=== PATIENT | female | born 1965 | race Two or more races ===

== ENCOUNTER 2025-03-10 13:58 | Emergency (ER) | payer OTHER ==
[~2025-03-10] VITALS: Ht 157.5 cm; Wt 70.9 kg
--- NOTE | 2025-03-10 14:49 | ED.PDOC ---
History of Present Illness HPI Comments 59 year old female presents to the ED with a chief complaint of headache onset last night (03/09/25). PMHx cervical arthritis, causes patient to experience migraines. Patient began experiencing headache, shortness of breath, bilateral ear pain, nausea, vomiting since last night, symptoms worsen this morning, decided to come to ED. Patient takes Ibuprofen 800 mg for pain, ran out of medication, recently moved to the area, has no PCP. Denies chest pain, diarrhea, abdominal pain, sore throat, cough, congestion, fever, chills. No other symptoms or modifying factors present at this time. 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 History Family History Family History: Reviewed,noncontributory to illness, No family hx of Cancer, No family hx of DM, No family hx of Heart abram, No family hx of HTN, No family hx ofKidney abram, No family hx of Liver abram, No family hx of Lung abram, No family hx of Stroke Social History Smoker: Non-Smoker Alcohol: Denies ETOH Use Drugs: Denies Drug Use Lives In: Home Constitutional: denies: chills, diaphoresis, fatigue, fever, malaise, sweats, weakness, others EENTM: reports: ear pain; denies: blurred vision, double vision, ear bleeding, ear discharge, ear drainage, ear ringing, eye pain, eye redness, hearing loss, mouth pain, mouth swelling, nasal discharge, nose bleeding, nose congestion, nose pain, photophobia, tearing, throat pain, throat swelling, voice changes, others Respiratory: reports: shortness of breath; denies: cough, hemoptysis, orthopnea, SOB at rest, SOB with excertion, stridor, wheezing, others Cardiovascular: denies: chest pain, dizzy spells, diaphoresis, Dyspnea on exertion, edema, irregular heart beat, left arm pain, lightheadedness, palpitations, PND, syncope, others Gastrointestinal: reports: nausea, vomiting; denies: abdomen distended, abdominal pain, blood streaked bowels, constipated, diarrhea, dysphagia, difficulty swallowing, hematemesis, melena, poor appetite, poor fluid intake, rectal bleeding, rectal pain, others Genitourinary: denies: abnormal vagina bleeding, burning, dyspareunia, dysuria, flank pain, frequency, hematuria, incontinence, pain, , vagina discharge, urgency, others Neurological: reports: headache; denies: dizziness, fainting, left sided numbness, left sided weakness, numbness, paresthesia, pre-existing deficit, right sided numbness, right sided weakness, seizure, speech problems, tingling, tremors, weakness, others Musculoskeletal: denies: back pain, gout, joint pain, joint swelling, muscle pain, muscle stiffness, neck pain, others Integumetry: denies: bruises, change in color, change in hair/nails, dryness, laceration, lesions, lumps, rash, wounds, others Allergic/Immunocompromised: denies: Difficulty Healing, Frequent Infections, Hives, Itching, others Hematologic/Lymphatic: denies: anemia, blood clots, easy bleeding, easy bruising, swollen glands, others Endocrine: denies: excessive hunger, excessive sweating, excessive thirst, excessive urination, flushing, intolerance to cold, intolerance to heat, unexplained weight gain, unexplained weight loss, others Psychiatric: denies: anxiety, bipolar disorder, depression, hopeless, panic disorder, schizophrenia, sleepless, suicidal, others All Other Systems: Reviewed and Negative Physical Exam General Appearance: Moderate Distress, Normal HEENT: Normal ENT Inspection, Pharynx Normal, TMs Normal Neck: Full Range of Motion, Non-Tender, Normal, Normal Inspection Respiratory: Chest Non-Tender, Lungs Clear, No Accessory Muscle Use, No Respiratory Distress, Normal Breath Sounds Cardiovascular: No Edema, No JVD, No Murmur, No Gallop, Normal Peripheral Pulses, Regular Rate/Rhythm Breast Exam: Deferred Gastrointestinal: No Organomegaly, Non Tender, No Pulsatile Mass, Normal Bowel Sounds, Soft Genitalia: Deferred Pelvic: Deferred Rectal: Deferred Extremities: No calf tenderness, Normal capillary refill, Normal inspection, Normal range of motion, Non-tender, No pedal edema Musculoskeletal : Apperance: Normal Neurologic: Alert, order entry specialist II-XII nml as Tested, No Motor Deficits, Normal Affect, Normal Mood, No Sensory Deficits Cerebellar Function: Normal Reflexes: Normal Skin: Dry, Normal Color, Warm Peripheral Pulses: 3+ Radial (R), 3+ Radial (L) Lymphatic: No Adenopathy Was a procedure done? Was a procedure done?: No Differential Dx Considerations may include: Migraine Urinary tract infection X-Ray, Labs, Meds, VS Vital Signs Date Time Temp Pulse Resp B/P (MAP) Pulse Ox O2 Delivery O2 Flow Rate FiO2 03/10/25 14:24 97.9 108 18 134/108 (117) 92 97.9 03/10/25 14:24 Room Air 0 Patient alert. Complaining of migraine. History of migraine. Vitals stable. Answering questions. No head trauma. No new symptom. Blood pressure slightly elevated. Has good muscle strength. No sign of any neurological. Was given Toradol. Was given [place]. Was given prescription of Motrin. Explained to the patient. Was told to follow up with her primary care physician. Was told to come back if there is any problem. Time of 1ST Reevaluation: 15:10 Reevaluation 1ST: Improved Patient Education/Counseling: Diagnosis, Treatment, Prognosis Family Education/Counseling: No Family Present Departure 1 Departure Time of Disposition: 15:21 Impression: Primary Impression: Migraine Qualified Codes: G43.909 - Migraine, unspecified, not intractable, without status migrainosus Disposition: 01 HOME / SELF CARE / HOMELESS Condition: Good e-Prescriptions Ibuprofen Micronized (MOTRIN TABLET) 600 Mg Tb 600 MG PO TID PRN for 5 Days, #15 TAB *Black box warning-NSAIDS can increase risk of [place] & hypertension, GI irritation, ulceration, bleed, perferation. Do not use post cardiac surgery. Use short duration/lowest effective dose. Prov: HILLARY PARKER MD 03/10/25 Discharged With: Self Critical Care Note Critical Care Time?: No Stability Stability form required: No I personally scribed for HILLARY PARKER MD ([email or web address]) on 03/10/25 at 14:49. Electronically submitted by Blanca Leonard ([email or web address]). HILLARY PARKER MD March 10, 2025 14:49
[2025-03-10] MEDS ORDERED: IBU600T PO (15:22)
[2025-03-10] MEDS: KETOROLAC TROMETH 60MG/2ML VIAL IM ONE (18:08)
[2025-03-10] MEDS: HYDROcodone-ACET 10/325MG TAB PO ONE (18:09)
[2025-03-10 18:19] VITALS: BP 146/86; PULSE 84; RESP 16; TEMP 98.6; O2SAT 100
== END 2025-03-10 18:48 | disposition home or self-care (01) ==
LOC: ER 14:03
DX: G43.909 Migraine, unspecified, not intractable, without status migrainosus (principal); M19.90 Unspecified osteoarthritis, unspecified site; H92.03 Otalgia, bilateral
CPT/HCPCS: 96372; 99283; J1885

== ENCOUNTER 2025-03-13 11:05 | Emergency (ER) | payer OTHER ==
[~2025-03-13] VITALS: Ht 154.9 cm; Wt 72.5 kg
[~2025-03-13 11:05] MED LIST: IBU600T PO
[2025-03-13 11:57] VITALS: BP 146/90; PULSE 107; RESP 16; TEMP 98.4; O2SAT 96
[2025-03-13] MEDS ORDERED: METH-1181 PO (12:25)
[2025-03-13] MEDS ORDERED: AUG875T PO (12:25)
[2025-03-13] MEDS ORDERED: NAPR-957 PO (12:25)
--- NOTE | 2025-03-13 12:25 | ED.PDOC ---
Eye-HPI HPI Comments 59-year-old female presents with a chief complaint of bilateral ear pain x 1 week. Patient states that she was here on the 10 of March for the same chief complaint, "but he never checked my ears". Patient was prescribed Ibuprofen 600mg for the pain and diagnosed with a Migraine. Patient also reports that the pain makes her feel nausea and she has been intermittently vomiting due to the pain. Denies fever, SOB, chest pain, abdominal pain, nausea, vomiting, diarrhea, dizziness, vision changes, or numbness/tingling of extremities. No other symptoms or modifying factors reported at this time. Patient is alert and oriented x4 and has a stable gait. Chief Complaint: Earache Time Seen by MD: 11:26 Primary Care Provider: NONE Reviewed Notes: Nurses Notes, Medications, Allergies Allergies: Coded Allergies: NO KNOWN ALLERGIES (Unverified , 03/10/25) Home Meds Active Scripts Naproxen (Naproxen) 375 Mg Tab, 1 TAB PO BIDPC for 7 Days, #14 TAB 0 Refills Prov:LUIAS REDMAN NP 03/13/25 Methocarbamol (Methocarbamol) 500 Mg Tab, 500 MG PO Q8HP PRN for 10 Days, #30 TAB 0 Refills Prov:LUISA REDMAN NP 03/13/25 Amoxicillin & Pot Clavulanate (AUGMENTIN TABLET) 875 Mg Tb, 875 MG PO BID for 7 Days, #14 TAB 0 Refills Prov:LUISA REDMAN NP 03/13/25 Ibuprofen Micronized (MOTRIN TABLET) 600 Mg Tb, 600 MG PO TID PRN for 5 Days, #15 TAB *Black box warning-NSAIDS can increase risk of [place] & hypertension, GI irritation, ulceration, bleed, perferation. Do not use post cardiac surgery. Use short duration/lowest effective dose. 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 History Family History Family History: Reviewed,noncontributory to illness, No family hx of Cancer, No family hx of DM, No family hx of Heart abram, No family hx of HTN, No family hx ofKidney abram, No family hx of Liver abram, No family hx of Lung abram, No family hx of Stroke Social History Smoker: Non-Smoker Alcohol: Denies ETOH Use Drugs: Denies Drug Use Lives In: Home Constitutional: denies: chills, diaphoresis, fatigue, fever, malaise, sweats, weakness, others EENTM: reports: ear pain; denies: blurred vision, double vision, ear bleeding, ear discharge, ear drainage, ear ringing, eye pain, eye redness, hearing loss, mouth pain, mouth swelling, nasal discharge, nose bleeding, nose congestion, nose pain, photophobia, tearing, throat pain, throat swelling, voice changes, others Respiratory: denies: cough, hemoptysis, orthopnea, SOB at rest, shortness of breath, SOB with excertion, stridor, wheezing, others Cardiovascular: denies: chest pain, dizzy spells, diaphoresis, Dyspnea on exertion, edema, irregular heart beat, left arm pain, lightheadedness, palpitations, PND, syncope, others Gastrointestinal: denies: abdomen distended, abdominal pain, blood streaked bowels, constipated, diarrhea, dysphagia, difficulty swallowing, hematemesis, melena, nausea, poor appetite, poor fluid intake, rectal bleeding, rectal pain, vomiting, others Genitourinary: denies: abnormal vagina bleeding, burning, dyspareunia, dysuria, flank pain, frequency, hematuria, incontinence, pain, , vagina dischar ge, urgency, others Neurological: denies: dizziness, fainting, headache, left sided numbness, left sided weakness, numbness, paresthesia, pre-existing deficit, right sided numbness, right sided weakness, seizure, speech problems, tingling, tremors, weakness, others Musculoskeletal: denies: back pain, gout, joint pain, joint swelling, muscle pain, muscle stiffness, neck pain, others Integumetry: denies: bruises, change in color, change in hair/nails, dryness, laceration, lesions, lumps, rash, wounds, others Allergic/Immunocompromised: denies: Difficulty Healing, Frequent Infections, Hives, Itching, others Hematologic/Lymphatic: denies: anemia, blood clots, easy bleeding, easy bruising, swollen glands, others Endocrine: denies: excessive hunger, excessive sweating, excessive thirst, excessive urination, flushing, intolerance to cold, intolerance to heat, unexplained weight gain, unexplained weight loss, others Psychiatric: denies: anxiety, bipolar disorder, depression, hopeless, panic disorder, schizophrenia, sleepless, suicidal, others All Other Systems: Reviewed and Negative Physical Exam General Appearance: No Apparent Distress, Normal HEENT: Normal ENT Inspection, Pharynx Normal, Other (Pre or post auricular lymphadenopathy. Pain to the tragus. Bilateral ear canals are erythematous. Bilateral bulging TMs) Neck: Full Range of Motion, Non-Tender, Normal, Normal Inspection Respiratory: Chest Non-Tender, Lungs Clear, No Accessory Muscle Use, No Respiratory Distress, Normal Breath Sounds Cardiovascular: No Edema, No JVD, No Murmur, No Gallop, Normal Peripheral Pulses, Regular Rate/Rhythm Breast Exam: Deferred Gastrointestinal: No Organomegaly, Non Tender, No Pulsatile Mass, Normal Bowel Sounds, Soft Genitalia: Deferred Pelvic: Deferred Rectal: Deferred Extremities: No calf tenderness, Normal capillary refill, Normal inspection, Normal range of motion, Non-tender, No pedal edema Musculoskeletal : Apperance: Normal Neurologic: Alert, laundry pricing clerk II-XII nml as Tested, No Motor Deficits, Normal Affect, Normal Mood, No Sensory Deficits Cerebellar Function: Normal Reflexes: Normal Skin: Dry, Normal Color, Warm Lymphatic: No Adenopathy Was a procedure done? Was a procedure done?: No EENT DIFF Eye: Other Ear: Abrasion, Cerumen Impaction, Foreign Body, Otitis Externa, Otitis Media X-Ray, Labs, Meds, VS Vital Signs Date Time Temp Pulse Resp B/P (MAP) Pulse Ox O2 Delivery O2 Flow Rate FiO2 03/13/25 11:57 107 16 96 Room Air 03/13/25 11:57 98.4 107 16 146/90 (108) 96 98.4 03/13/25 11:20 98.4 107 16 146/90 (108) 96 98.4 X-Ray, Labs, Meds, VS Comment Differentials considered but not limited to bullous myringitis, eustachian tube dysfunction, cholesteatoma, mastoiditis, meningitis. Exam and history are most consistent with Acute Otitis Media. No diabetes, immunosuppression. Rx: Augmentin Disposition: Discharge home. Strict return precautions discussed. Advise follow up with primary care provider within 24-48 hours. Time of 1ST Reevaluation: 12:39 Reevaluation 1ST: Improved Patient Education/Counseling: Diagnosis, Treatment, Need For Follow Up Family Education/Counseling: No Family Present Departure 1 Departure Time of Disposition: 12:24 Impression: Primary Impression: AOM (acute otitis media) Qualified Codes: H66.001 - Acute suppurative otitis media without spontaneous rupture of ear drum, right ear Additional Impression: Musculoskeletal pain Disposition: HOME / SELF CARE / HOMELESS Condition: Stable e-Prescriptions Naproxen (Naproxen) 375 Mg Tab 1 TAB PO BIDPC for 7 Days, #14 TAB 0 Refills Prov: LUISA REDMAN EXPRESSIVE THERAPIST 03/13/25 Methocarbamol (Methocarbamol) 500 Mg Tab 500 MG PO Q8HP PRN for 10 Days, #30 TAB 0 Refills Prov: LUISA REDMAN NP 03/13/25 Amoxicillin & Pot Clavulanate (AUGMENTIN TABLET) 875 Mg Tb 875 MG PO BID for 7 Days, #14 TAB 0 Refills Prov: LUISA REDMAN EXPRESSIVE THERAPIST 03/13/25 Critical Care Note Critical Care Time?: No Stability Stability form required: No Heart Score Heart Score: Heart Score Response (Comments) Value History N/A 0 EKG N/A 0 Age N/A 0 Risk Factors N/A 0 Troponin N/A 0 Total 0 I personally scribed for LUISA REDMAN EXPRESSIVE THERAPIST ([email or web address]) on 03/13/25 at 12:28. Electronically submitted by Rodney Webster ([email or web address]). I personally scribed for LUISA REDMAN EXPRESSIVE THERAPIST ([email or web address]) on 03/13/25 at 12:31. Electronically submitted by Rodney Webster ([email or web address]). LUISA REDMAN EXPRESSIVE THERAPIST March 13, 2025 12:25
== END 2025-03-13 12:43 | disposition home or self-care (01) ==
LOC: ER 11:05
DX: H66.93 Otitis media, unspecified, bilateral (principal); M79.18 Myalgia, other site; M19.90 Unspecified osteoarthritis, unspecified site; Z79.899 Other long term (current) drug therapy

== ENCOUNTER 2025-03-23 13:41 | Emergency (ER) | payer OTHER ==
[~2025-03-23] VITALS: Ht 154.9 cm; Wt 71.8 kg
[~2025-03-23 13:41] MED LIST changes: +AUG875T PO; +METH-1181 PO; +NAPR-957 PO
--- NOTE | 2025-03-23 14:38 | ED.PDOC ---
History of Present Illness HPI Comments 59-year-old female presents to the ER with prior medical history of arthritis and the chief complaint of earache. Patient reports that she has been here three previous times for the same chief complaint in the past, was given medication for the pain but recently ran out. Patient states on having bilateral earache, sharp pain on the neck, jaw and the temporal region. To physical exam the ears have erythema possibly due from an infection. Denies chills, fever, N/V/D, SOB, CP. No other associated symptoms, modifiers, recent injuries or sick contacts present at this time. Chief Complaint: Earache Time Seen by MD: 14:10 Primary Care Provider: NONE Reviewed Notes: Nurses Notes, Medications, Allergies Allergies: Coded Allergies: NO KNOWN ALLERGIES (Unverified , 03/10/25) Home Meds Active Scripts Naproxen (Naproxen) 375 Mg Tab, 1 TAB PO BIDPC for 7 Days, #14 TAB 0 Refills Prov:LUISA REDMAN NP 03/13/25 Methocarbamol (Methocarbamol) 500 Mg Tab, 500 MG PO Q8HP PRN for 10 Days, #30 TAB 0 Refills Prov:LUISA REDMAN NP 03/13/25 Amoxicillin & Pot Clavulanate (AUGMENTIN TABLET) 875 Mg Tb, 875 MG PO BID for 7 Days, #14 TAB 0 Refills Prov:LUISA REDMAN NP 03/13/25 Ibuprofen Micronized (MOTRIN TABLET) 600 Mg Tb, 600 MG PO TID PRN for 5 Days, #15 TAB *Black box warning-NSAIDS can increase risk of [place] & hypertension, GI irritation, ulceration, bleed, perferation. Do not use post cardiac surgery. Use short duration/lowest effective dose. Prov:HILLARY PARKER MD 03/10/25 Information Source: Patient Mode of Arrival: Ambulatory Severity: Moderate Timing: Came on: Gradually Duration: Since onset Prehospital treatment: None Past Medical History PAST MEDICAL HISTORY: Arthritis Surgical History: Denies all surgeries PUTTY WORKER History: No Pertinent PUTTY WORKER History Family History Family History: Reviewed,noncontributory to illness, Unknown Social History Smoker: Non-Smoker Alcohol: Denies ETOH Use Drugs: Denies Drug Use Lives In: Home Constitutional: denies: chills, diaphoresis, fatigue, fever, malaise, sweats, weakness, others EENTM: reports: ear pain; denies: blurred vision, double vision, ear bleeding, ear discharge, ear drainage, ear ringing, eye pain, eye redness, hearing loss, mouth pain, mouth swelling, nasal discharge, nose bleeding, nose congestion, nose pain, photophobia, tearing, throat pain, throat swelling, voice changes, others Respiratory: denies: cough, hemoptysis, orthopnea, SOB at rest, shortness of breath, SOB with excertion, stridor, wheezing, others Cardiovascular: denies: chest pain, dizzy spells, diaphoresis, Dyspnea on exertion, edema, irregular heart beat, left arm pain, lightheadedness, palpitations, PND, syncope, others Gastrointestinal: denies: abdomen distended, abdominal pain, blood streaked bowels, constipated, diarrhea, dysphagia, difficulty swallowing, hematemesis, melena, nausea, poor appetite, poor fluid intake, rectal bleeding, rectal pain, vomiting, others Genitourinary: denies: abnormal vagina bleeding, burning, dyspareunia, dysuria, flank pain, frequency, hematuria, incontinence, pain, , vagina discharge, urgency, others Neurological: denies: dizziness, fainting, headache, left sided numbness, left sided weakness, numbness, paresthesia, pre-existing deficit, right sided numbness, right sided weakness, seizure, speech problems, tingling, tremors, weakness, others Musculoskeletal: denies: back pain, gout, joint pain, joint swelling, muscle pain, muscle stiffness, neck pain, others Integumetry: denies: bruises, change in color, change in hair/nails, dryness, laceration, lesions, lumps, rash, wounds, others Allergic/Immunocompromised: denies: Difficulty Healing, Frequent Infections, Hives, Itching, others Hematologic/Lymphatic: denies: anemia, blood clots, easy bleeding, easy bruising, swollen glands, others Endocrine: denies: excessive hunger, excessive sweating, excessive thirst, excessive urination, flushing, intolerance to cold, intolerance to heat, unexplained weight gain, unexplained weight loss, others Psychiatric: denies: anxiety, bipolar disorder, depression, hopeless, panic disorder, schizophrenia, sleepless, suicidal, others All Other Systems: Reviewed and Negative Physical Exam General Appearance: Moderate Distress, Normal HEENT: Normal ENT Inspection, Pharynx Normal, TMs Normal Neck: Full Range of Motion, Non-Tender, Normal, Normal Inspection Respiratory: Chest Non-Tender, Lungs Clear, No Accessory Muscle Use, No Respiratory Distress, Normal Breath Sounds Cardiovascular: No Edema, No JVD, No Murmur, No Gallop, Normal Peripheral Pulses, Regular Rate/Rhythm Breast Exam: Deferred Gastrointestinal: No Organomegaly, Non Tender, No Pulsatile Mass, Normal Bowel Sounds, Soft Genitalia: Deferred Pelvic: Deferred Rectal: Deferred Extremities: No calf tenderness, Normal capillary refill, Normal inspection, Normal range of motion, Non-tender, No pedal edema Musculoskeletal : Apperance: Normal Neurologic: Alert, cylinder worker II-XII nml as Tested, No Motor Deficits, Normal Affect, Normal Mood, No Sensory Deficits Cerebellar Function: Normal Reflexes: Normal Skin: Dry, Normal Color, Warm Peripheral Pulses: 3+ Radial (R), 3+ Radial (L) Lymphatic: No Adenopathy Was a procedure done? Was a procedure done?: No Differential Dx Considerations may include: Autonomic disorder X-Ray, Labs, Meds, VS Vital Signs Date Time Temp Pulse Resp B/P (MAP) Pulse Ox O2 Delivery O2 Flow Rate FiO2 03/23/25 13:41 98.7 116 20 153/97 (115) 97 98.7 03/23/25 13:41 98.7 116 20 153/97 (115) 97 98.7 Current Medications Medications (Trade) Dose Ordered Sig/Chucky Route Start Time Stop Time Status Last Admin Ondansetron HCl (Zofran) 4 mg ONCE ONCE IM 03/23/25 14:30 03/23/25 14:31 DC 03/23/25 14:39 Ketorolac Tromethamine (Toradol Injection) 60 mg ONCE ONCE IM 03/23/25 14:30 03/23/25 14:31 DC 03/23/25 14:40 Patient alert. Complaining do have ear problems. On examination no sign of any infection. Vitals stable. She is anxious. Saturation pristine on room air. Was given Toradol. Was given Zofran. Reviewed her previous visit. Neurological examination pristine. Possible autonomic disorder. Was given prescription of meclizine. Explained to the patient. Was told to follow up with her primary care physician. Was told to come back if there is any problem. Time of 1ST Reevaluation: 14:40 Reevaluation 1ST: Improved Patient Education/Counseling: Diagnosis, Treatment, Prognosis Family Education/Counseling: No Family Present Departure 1 Departure Time of Disposition: 14:58 Impression: Primary Impression: Autonomic disorder Disposition: 01 HOME / SELF CARE / HOMELESS Condition: Good e-Prescriptions Meclizine HCl (Meclizine 25) 25 Mg Tab 25 MG PO BS for 10 Days, #10 TAB Prov: HILLARY PARKER MD 03/23/25 Discharged With: Self Critical Care Note Critical Care Time?: No Stability Stability form required: No Heart Score Heart Score: Heart Score Response (Comments) Value History N/A 0 EKG N/A 0 Age N/A 0 Risk Factors N/A 0 Troponin N/A 0 Total 0 I personally scribed for HILLARY PARKER MD ([email or web address]) on 03/23/25 at 14:38. Electronically submitted by Markus Hutton ([email or web address]). HILLARY PARKER MD March 23, 2025 14:38
[2025-03-23] MEDS: ONDANSETRON HCL 4 MG/2 ML VIAL IM ONE (14:39)
[2025-03-23] MEDS: KETOROLAC TROMETH 60MG/2ML VIAL IM ONE (14:40)
[2025-03-23] MEDS ORDERED: MECL1TAB42 PO (14:58)
[2025-03-23 15:18] VITALS: BP 157/96; PULSE 99; RESP 18; TEMP 98; O2SAT 95
== END 2025-03-23 15:27 | disposition home or self-care (01) ==
LOC: ER 13:41
DX: G90.9 Disorder of the autonomic nervous system, unspecified (principal); H92.03 Otalgia, bilateral; M19.90 Unspecified osteoarthritis, unspecified site; Z79.899 Other long term (current) drug therapy
CPT/HCPCS: 96372; 99284; J1885; J2405

== ENCOUNTER 2025-04-01 20:29 | Emergency (ER) | payer OTHER ==
[~2025-04-01 20:29] MED LIST changes: +MECL1TAB42 PO
[2025-04-01 20:52] VITALS: PULSE 107; RESP 20; TEMP 98.9; O2SAT 95
--- NOTE | 2025-04-01 21:08 | ED.PDOC ---
History of Present Illness HPI Comments 59-year-old female who comes in with chief complaint of headache and body pain for approximately 2-3 days. The patient states that this is her 3rd visit hear for the pain. The patient denies any nausea, vomiting or diarrhea. The patient has a history of arthritis. She states that she does not have a primary care doctor and so she comes to the emergency department's for visits Time Seen by MD: 20:57 Primary Care Provider: NONE Reviewed Notes: Nurses Notes, Medications, Allergies (No allergies to medications) Allergies: Coded Allergies: NO KNOWN ALLERGIES (Unverified , 03/10/25) Home Meds Active Scripts Meclizine HCl (Meclizine 25) 25 Mg Tab, 25 MG PO BS for 10 Days, #10 TAB Prov:HILLARY PARKER MD 03/23/25 Naproxen (Naproxen) 375 Mg Tab, 1 TAB PO BIDPC for 7 Days, #14 TAB 0 Refills Prov:LUISA REDMAN NP 03/13/25 Methocarbamol (Methocarbamol) 500 Mg Tab, 500 MG PO Q8HP PRN for 10 Days, #30 TAB 0 Refills Prov:LUISA REDMAN NP 03/13/25 Amoxicillin & Pot Clavulanate (AUGMENTIN TABLET) 875 Mg Tb, 875 MG PO BID for 7 Days, #14 TAB 0 Refills Prov:LUISA REDMAN NP 03/13/25 Ibuprofen Micronized (MOTRIN TABLET) 600 Mg Tb, 600 MG PO TID PRN for 5 Days, #15 TAB *Black box warning-NSAIDS can increase risk of NC & hypertension, GI irritation, ulceration, bleed, perferation. Do not use post cardiac surgery. Use short duration/lowest effective dose. 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 Family History Family History: Reviewed,noncontributory to illness, Unknown Social History Smoker: Cigarettes Alcohol: Denies ETOH Use Drugs: Denies Drug Use Lives In: Home Constitutional: reports: others (Body pain); denies: chills, diaphoresis, fatigue, fever, malaise, sweats, weakness EENTM: denies: blurred vision, double vision, ear bleeding, ear discharge, ear drainage, ear pain, ear ringing, eye pain, eye redness, hearing loss, mouth pain, mouth swelling, nasal discharge, nose bleeding, nose congestion, nose pain, photophobia, tearing, throat pain, throat swelling, voice changes, others Respiratory: denies: cough, hemoptysis, orthopnea, SOB at rest, shortness of breath, SOB with excertion, stridor, wheezing, others Cardiovascular: denies: chest pain, dizzy spells, diaphoresis, Dyspnea on exertion, edema, irregular heart beat, left arm pain, lightheadedness, palpitations, PND, syncope, others Gastrointestinal: denies: abdomen distended, abdominal pain, blood streaked bowels, constipated, diarrhea, dysphagia, difficulty swallowing, hematemesis, melena, nausea, poor appetite, poor fluid intake, rectal bleeding, rectal pain, vomiting, others Genitourinary: denies: abnormal vagina bleeding, burning, dyspareunia, dysuria, flank pain, frequency, hematuria, incontinence, pain, , vagina discharge, urgency, others Neurological: reports: headache; denies: dizziness, fainting, left sided numbness, left sided weakness, numbness, paresthesia, pre-existing deficit, right sided numbness, right sided weakness, seizure, speech problems, tingling, tremors, weakness, others Musculoskeletal: denies: back pain, gout, joint pain, joint swelling, muscle pain, muscle stiffness, neck pain, others Integumetry: denies: bruises, change in color, change in hair/nails, dryness, laceration, lesions, lumps, rash, wounds, others Allergic/Immunocompromised: denies: Difficulty Healing, Frequent Infections, Hives, Itching, others Hematologic/Lymphatic: denies: anemia, blood clots, easy bleeding, easy bruising, swollen glands, others Endocrine: denies: excessive hunger, excessive sweating, excessive thirst, excessive urination, flushing, intolerance to cold, intolerance to heat, unexplained weight gain, unexplained weight loss, others Psychiatric: denies: anxiety, bipolar disorder, depression, hopeless, panic disorder, schizophrenia, sleepless, suicidal, others Physical Exam General Appearance: Mild Distress HEENT: Normal ENT Inspection, Pharynx Normal, TMs Normal Neck: Full Range of Motion, Non-Tender, Normal, Normal Inspection Respiratory: Chest Non-Tender, Lungs Clear, No Accessory Muscle Use, No Respiratory Distress, Normal Breath Sounds Cardiovascular: No Edema, No JVD, No Murmur, No Gallop, Normal Peripheral Pulses, Regular Rate/Rhythm Breast Exam: Deferred Gastrointestinal: No Organomegaly, Non Tender, No Pulsatile Mass, Normal Bowel Sounds, Soft Genitalia: Deferred Pelvic: Deferred Rectal: Deferred Extremities: No calf tenderness, Normal capillary refill, Normal inspection, Normal range of motion, Non-tender, No pedal edema Musculoskeletal : Apperance: Normal Neurologic: Alert, disposal operator II-XII nml as Tested, No Motor Deficits, Normal Affect, Normal Mood, No Sensory Deficits Cerebellar Function: Normal Reflexes: Normal Skin: Dry, Normal Color, Warm Lymphatic: No Adenopathy Was a procedure done? Was a procedure done?: No Differential Dx Considerations may include: Body pain, headache, dehydration, arthritis X-Ray, Labs, Meds, VS At this time the patient was given morphine 4 mg IM. The patient was given Zofran 4 mg IM The patient will return to the emergency department's the condition worsens The patient is encouraged to get herself a primary care doctor Time of 1ST Reevaluation: 21:07 Reevaluation 1ST: Improved Patient Education/Counseling: Diagnosis, Treatment, Prognosis, Need For Follow Up Family Education/Counseling: No Family Present Departure 1 Departure Time of Disposition: 21:07 Impression: Primary Impression: Arthritis Additional Impression: Tension headache Disposition: 01 HOME / SELF CARE / HOMELESS Condition: Fair Discharged With: Self Critical Care Note Critical Care Time?: No Stability Stability form required: No Heart Score Heart Score: Heart Score Response (Comments) Value History N/A 0 EKG N/A 0 Age N/A 0 Risk Factors N/A 0 Troponin N/A 0 Total 0 MISTY BAIG MD Apr 01, 2025 21:08
[2025-04-01] MEDS ORDERED: MORPHINE SULFATE INJ 2 MG/ml SYRG IM ONE (21:15)
[2025-04-01] MEDS: MORPHINE SULFATE 4 MG/ML SYR/VIAL ONE (21:29)
[2025-04-01] MEDS: ONDANSETRON ODT 4 MG TAB PO ONE (21:29)
[2025-04-01 21:30] VITALS: BP 148/99; PULSE 107; RESP 20
[2025-04-01] MEDS: MORPHINE SULFATE 4 MG/ML SYR/VIAL IM ONE (21:30)
== END 2025-04-01 21:45 | disposition home or self-care (01) ==
LOC: ER 20:33
DX: M19.90 Unspecified osteoarthritis, unspecified site (principal); G44.209 Tension-type headache, unspecified, not intractable; F17.210 Nicotine dependence, cigarettes, uncomplicated; Z90.49 Acquired absence of other specified parts of digestive tract; Z98.51 Tubal ligation status; Z98.890 Other specified postprocedural states; Z79.899 Other long term (current) drug therapy
CPT/HCPCS: 96372; 99283; J2270; Q0162

== ENCOUNTER 2025-04-30 21:43 | Emergency (ER) | payer OTHER ==
[~2025-04-30] VITALS: Ht 157.5 cm; Wt 73.3 kg
--- NOTE | 2025-04-30 22:24 | ED.PDOC ---
GI ASSESSMENT HPI Comments 59 year old female presents to the ED with a chief complaint of generalized body pain onset 2 weeks. Patient states she has been experiencing generalized body pain for the past 2 weeks, diarrhea past 10 days, began experiencing nausea/vomiting today about 4 episodes. Patient has been taking Ibuprofen for pain with no improvement of symptoms, rates pain 8/10. PMHx arthritis. Denies chest pain, shortness of breath, cough, congestion, headache, hematemesis, dysuria, hematuria, fever, chills. No other symptoms or modifying factors present at this time. Chief Complaint: Body Pain Time Seen by MD: 22:15 Primary Care Provider: NONE Reviewed Notes: Medications, Allergies Allergies: Coded Allergies: NO KNOWN ALLERGIES (Unverified , 03/10/25) Home Meds Active Scripts Meclizine HCl (Meclizine 25) 25 Mg Tab, 25 MG PO BS for 10 Days, #10 TAB Prov:HILLARY PARKER MD 03/23/25 Naproxen (Naproxen) 375 Mg Tab, 1 TAB PO BIDPC for 7 Days, #14 TAB 0 Refills Prov:LUISA REDMAN NP 03/13/25 Methocarbamol (Methocarbamol) 500 Mg Tab, 500 MG PO Q8HP PRN for 10 Days, #30 TAB 0 Refills Prov:LUISA REDMAN NP 03/13/25 Amoxicillin & Pot Clavulanate (AUGMENTIN TABLET) 875 Mg Tb, 875 MG PO BID for 7 Days, #14 TAB 0 Refills Prov:LUISA REDMAN NP 03/13/25 Ibuprofen Micronized (MOTRIN TABLET) 600 Mg Tb, 600 MG PO TID PRN for 5 Days, #15 TAB *Black box warning-NSAIDS can increase risk of [place] & hypertension, GI irritation, ulceration, bleed, perferation. Do not use post cardiac surgery. Use short duration/lowest effective dose. 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 Family History Family History: Reviewed,noncontributory to illness, Unknown Social History Smoker: Cigarettes Alcohol: Denies ETOH Use Drugs: Denies Drug Use Lives In: Home Constitutional: reports: others (body pain); denies: chills, diaphoresis, fatigue, fever, malaise, sweats, weakness EENTM: denies: blurred vision, double vision, ear bleeding, ear discharge, ear drainage, ear pain, ear ringing, eye pain, eye redness, hearing loss, mouth pain, mouth swelling, nasal discharge, nose bleeding, nose congestion, nose pain, photophobia, tearing, throat pain, throat swelling, voice changes, others Respiratory: denies: cough, hemoptysis, orthopnea, SOB at rest, shortness of breath, SOB with excertion, stridor, wheezing, others Cardiovascular: denies: chest pain, dizzy spells, diaphoresis, Dyspnea on exertion, edema, irregular heart beat, left arm pain, lightheadedness, palpitations, PND, syncope, others Gastrointestinal: reports: diarrhea, nausea, vomiting; denies: abdomen distended, abdominal pain, blood streaked bowels, constipated, dysphagia, difficulty swallowing, hematemesis, melena, poor appetite, poor fluid intake, rectal bleeding, rectal pain, others Genitourinary: denies: abnormal vagina bleeding, burning, dyspareunia, dysuria, flank pain, frequency, hematuria, incontinence, pain, , vagina discharge, urgency, others Neurological: denies: dizziness, fainting, headache, left sided numbness, left sided weakness, numbness, paresthesia, pre-existing deficit, right sided numbness, right sided weakness, seizure, speech problems, tingling, tremors, weakness, others Musculoskeletal: denies: back pain, gout, joint pain, joint swelling, muscle p ain, muscle stiffness, neck pain, others Integumetry: denies: bruises, change in color, change in hair/nails, dryness, laceration, lesions, lumps, rash, wounds, others Allergic/Immunocompromised: denies: Difficulty Healing, Frequent Infections, Hives, Itching, others Hematologic/Lymphatic: denies: anemia, blood clots, easy bleeding, easy bruising, swollen glands, others Endocrine: denies: excessive hunger, excessive sweating, excessive thirst, excessive urination, flushing, intolerance to cold, intolerance to heat, unexplained weight gain, unexplained weight loss, others Psychiatric: denies: anxiety, bipolar disorder, depression, hopeless, panic disorder, schizophrenia, sleepless, suicidal, others All Other Systems: Reviewed and Negative Physical Exam General Appearance: Normal HEENT: Normal ENT Inspection, Pharynx Normal, TMs Normal Neck: Full Range of Motion, Non-Tender, Normal, Normal Inspection Respiratory: Chest Non-Tender, Lungs Clear, No Accessory Muscle Use, No Respiratory Distress, Normal Breath Sounds Cardiovascular: No Edema, No JVD, No Murmur, No Gallop, Normal Peripheral Pulses, Regular Rate/Rhythm Breast Exam: Deferred Gastrointestinal: No Organomegaly, Non Tender, No Pulsatile Mass, Normal Bowel Sounds, Soft Genitalia: Deferred Pelvic: Deferred Rectal: Deferred Extremities: No calf tenderness, Normal capillary refill, Normal inspection, Normal range of motion, Non-tender, No pedal edema Musculoskeletal : Apperance: Normal Neurologic: Alert, electric razor assembler II-XII nml as Tested, No Motor Deficits, Normal Affect, Normal Mood, No Sensory Deficits Cerebellar Function: Normal Reflexes: Normal Skin: Dry, Normal Color, Warm Lymphatic: No Adenopathy Was a procedure done? Was a procedure done?: No GI differential Dx Differential Diagnosis: Gastroenteritis, UTI, Dehydration, Electrolyte Imbalance, Hypovolemia X-Ray, Labs, Meds, VS Vital Signs Date Time Temp Pulse Resp B/P (MAP) Pulse Ox O2 Delivery O2 Flow Rate FiO2 04/30/25 22:11 98.2 109 18 137/94 (108) 97 98.2 Lab Test 04/30/25 22:28 Range/Units White Blood Count 9.9 4.4-10.8 10^3/uL Red Blood Count 4.42 4.0-5.20 10^6/uL Hemoglobin 14.3 12.2-16.2 g/dL Hematocrit 42.2 36.0-46.0 % Mean Corpuscular Volume 95.5 80.0-100.0 fL Mean Corpuscular Hemoglobin 32.4 H 28.0-32.0 pg Mean Corpuscular Hemoglobin Concent 34.0 32.0-36.0 g/dL Red Cell Distribution Width 13.7 11.8-14.3 % Platelet Count 305 140-450 10^3/uL Mean Platelet Volume 8.8 6.9-10.8 fL Neutrophils (%) (Auto) 56.8 37.0-80.0 % Lymphocytes (%) (Auto) 36.5 10.0-50.0 % Monocytes (%) (Auto) 3.7 0.0-12.0 % Eosinophils (%) (Auto) 2.0 0.0-7.0 % Basophils (%) (Auto) 1.0 0.0-2.0 % Neutrophils # (Auto) 5.6 1.6-8.6 10 ^3/uL Lymphocytes # (Auto) 3.6 0.4-5.4 10 ^3/uL Monocytes # (Auto) 0.4 0-1.3 10 ^3/uL Eosinophils # (Auto) 0.2 0-0.8 10 ^3/uL Basophils # (Auto) 0.1 0-0.2 10 ^3/uL Nucleated Red Blood Cells 0.0 % Sodium Level 143 136-145 mmol/L Potassium Level 3.7 3.5-5.1 mmol/L Chloride Level 109 H 98-107 mmol/L Carbon Dioxide Level 24 20-31 mmol/L Anion Gap 10 5-15 Blood Urea Nitrogen 16 9-23 mg/dL Creatinine 0.81 0.550-1.02 mg/dL Glomerular Filtration Rate Calc 84 >90 mL/min BUN/Creatinine Ratio 19.8 10.0-20.0 Serum Glucose 139 H 74-106 mg/dL Calcium Level 9.8 8.7-10.4 mg/dL Total Bilirubin 0.4 0.2-1.0 mg/dL Aspartate Amino Transferase (AST) 25 13-40 U/L Alanine Aminotransferase (ALT) 34 7-40 U/L Alkaline Phosphatase 59 46-116 U/L Total Protein 7.4 5.7-8.2 g/dL Albumin 4.8 3.2-4.8 g/dL Time of 1ST Reevaluation: 22:45 Reevaluation 1ST: Unchanged Patient Education/Counseling: Diagnosis, Treatment, Prognosis Family Education/Counseling: No Family Present SEPSIS Sepsis Screen Date sepsis recognized/suspect: Apr 30, 2025 Time Sepsis recognized/suspect: 2199 Recent Procedure: No On Antibiotic Therapy: No Respiratory Rate >20: No Heart Rate >90: Yes Temp<36 C (96.8 F) or >38.3 C: No SBP <90 or MAP <65 mmHG: No New Acute Mental Status Change: No Is the patient on CPAP, BIPAP,: No Physician Orders Urinalysis (04/30/25 22:20) Vital Signs Date Time Temp Pulse Resp B/P (MAP) Pulse Ox O2 Delivery O2 Flow Rate FiO2 04/30/25 22:11 98.2 109 18 137/94 (108) 97 98.2 Laboratory Tests Test 04/30/25 22:28 White Blood Count 9.9 10^3/uL (4.4-10.8) Departure 1 Departure Time of Disposition: 01:56 (Patient presenting with multiple complaints but eloped prior to workup completion) Impression: Primary Impression: Generalized weakness Disposition: 07 LEFT AWOL/ELOPED Condition: Serious Critical Care Note Critical Care Time?: No Stability Stability form required: No I personally scribed for DEONTE YO MD ([email or web address]) on 04/30/25 at 22:24. Electronically submitted by Blanca Leonard ([email or web address]). DEONTE YO MD Apr 30, 2025 22:24
[2025-04-30 22:36] LABS: Hematocrit 42.2 % (36.0-46.0); Hemoglobin 14.3 g/dL (12.2-16.2); Mean Corpuscular Hemoglobin 32.4 pg (28.0-32.0); Mean Corpuscular Volume 95.5 fL (80.0-100.0); Nucleated Red Blood Cells % 0.0 %
[2025-04-30 22:58] LABS: Alanine Aminotransferase 34 U/L (7-40); Alkaline Phosphatase 59 U/L (46-116); Anion Gap 10 (5-15); BUN/Creatinine Ratio 19.8 (10.0-20.0); Blood Urea Nitrogen 16 mg/dL (9-23); Calcium 9.8 mg/dL (8.7-10.4); Carbon Dioxide 24 mmol/L (20-31); Potassium 3.7 mmol/L (3.5-5.1); Sodium 143 mmol/L (136-145); Total Protein 7.4 g/dL (5.7-8.2)
[2025-04-30 22:59] LABS: Albumin 4.8 g/dL (3.2-4.8); Bilirubin, Total 0.4 mg/dL (0.2-1.0)
[2025-04-30 23:07] LABS: Chloride 109 mmol/L (98-107); Glucose 139 mg/dL (74-106)
[2025-05-01 02:19] VITALS: BP 140/84; PULSE 96; RESP 18; TEMP 98; O2SAT 98
[2025-05-01] MEDS ORDERED: ARIP1INJ2 IM (13:54)
[2025-05-01] MEDS ORDERED: ARIP15TA48 PO (13:54)
== END 2025-05-01 01:50 | disposition left against medical advice (07) ==
LOC: ER 21:43
DX: R53.1 Weakness (principal); M79.18 Myalgia, other site; R19.7 Diarrhea, unspecified; R11.2 Nausea with vomiting, unspecified; F17.210 Nicotine dependence, cigarettes, uncomplicated; M19.90 Unspecified osteoarthritis, unspecified site; Z90.49 Acquired absence of other specified parts of digestive tract; Z98.51 Tubal ligation status; Z98.890 Other specified postprocedural states
CPT/HCPCS: 36415; 80053; 85025

== ENCOUNTER 2025-05-01 02:40 | Inpatient (IN) | payer OTHER ==
[~2025-05-01] VITALS: Ht 157.5 cm; Wt 83.0 kg
--- NOTE | 2025-05-01 03:00 | ED.PDOC ---
History of Present Illness HPI Comments 59 year old female presents to the ED with a chief complaint of diarrhea onset 10 days. Patient was seen in this ED last night, eloped and returned for treatment. Patient came to ED due to diarrhea for 10 days, 4 episodes of nausea/vomiting last night, generalized body pain, took Ibuprofen for pain with no improvement. Time Seen by MD: 02:55 Primary Care Provider: NONE Reviewed Notes: Medications, Allergies Allergies: Coded Allergies: NO KNOWN ALLERGIES (Unverified , 03/10/25) Home Meds Active Scripts Meclizine HCl (Meclizine 25) 25 Mg Tab, 25 MG PO BS for 10 Days, #10 TAB Prov:HILLARY PARKER MD 03/23/25 Naproxen (Naproxen) 375 Mg Tab, 1 TAB PO BIDPC for 7 Days, #14 TAB 0 Refills Prov:LUISA REDMAN NP 03/13/25 Methocarbamol (Methocarbamol) 500 Mg Tab, 500 MG PO Q8HP PRN for 10 Days, #30 TAB 0 Refills Prov:LUISA REDMAN NP 03/13/25 Amoxicillin & Pot Clavulanate (AUGMENTIN TABLET) 875 Mg Tb, 875 MG PO BID for 7 Days, #14 TAB 0 Refills Prov:LUISA REDMAN NP 03/13/25 Ibuprofen Micronized (MOTRIN TABLET) 600 Mg Tb, 600 MG PO TID PRN for 5 Days, #15 TAB *Black box warning-NSAIDS can increase risk of [place] & hypertension, GI irritation, ulceration, bleed, perferation. Do not use post cardiac surgery. Use short duration/lowest effective dose. 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 Family History Family History: Reviewed,noncontributory to illness, Unknown Social History Smoker: Cigarettes Alcohol: Denies ETOH Use Drugs: Denies Drug Use Lives In: Home Constitutional: denies: chills, diaphoresis, fatigue, fever, malaise, sweats, weakness, others EENTM: denies: blurred vision, double vision, ear bleeding, ear discharge, ear drainage, ear pain, ear ringing, eye pain, eye redness, hearing loss, mouth pain, mouth swelling, nasal discharge, nose bleeding, nose congestion, nose pain, photophobia, tearing, throat pain, throat swelling, voice changes, others Respiratory: denies: cough, hemoptysis, orthopnea, SOB at rest, shortness of breath, SOB with excertion, stridor, wheezing, others Cardiovascular: denies: chest pain, dizzy spells, diaphoresis, Dyspnea on exertion, edema, irregular heart beat, left arm pain, lightheadedness, palpitations, PND, syncope, others Gastrointestinal: reports: diarrhea, nausea, vomiting; denies: abdomen distended, abdominal pain, blood streaked bowels, constipated, dysphagia, difficulty swallowing, hematemesis, melena, poor appetite, poor fluid intake, rectal bleeding, rectal pain, others Genitourinary: denies: abnormal vagina bleeding, burning, dyspareunia, dysuria, flank pain, frequency, hematuria, incontinence, pain, , vagina discharg e, urgency, others Neurological: denies: dizziness, fainting, headache, left sided numbness, left sided weakness, numbness, paresthesia, pre-existing deficit, right sided numbness, right sided weakness, seizure, speech problems, tingling, tremors, weakness, others Musculoskeletal: denies: back pain, gout, joint pain, joint swelling, muscle pain, muscle stiffness, neck pain, others Integumetry: denies: bruises, change in color, change in hair/nails, dryness, laceration, lesions, lumps, rash, wounds, others Allergic/Immunocompromised: denies: Difficulty Healing, Frequent Infections, Hives, Itching, others Hematologic/Lymphatic: denies: anemia, blood clots, easy bleeding, easy bruising, swollen glands, others Endocrine: denies: excessive hunger, excessive sweating, excessive thirst, excessive urination, flushing, intolerance to cold, intolerance to heat, unexplained weight gain, unexplained weight loss, others Psychiatric: denies: anxiety, bipolar disorder, depression, hopeless, panic d isorder, schizophrenia, sleepless, suicidal, others All Other Systems: Reviewed and Negative Physical Exam General Appearance: No Apparent Distress, Normal HEENT: Normal ENT Inspection, Pharynx Normal, TMs Normal Neck: Full Range of Motion, Non-Tender, Normal, Normal Inspection Respiratory: Chest Non-Tender, Lungs Clear, No Accessory Muscle Use, No Respiratory Distress, Normal Breath Sounds Cardiovascular: No Edema, No JVD, No Murmur, No Gallop, Normal Peripheral Pulses, Regular Rate/Rhythm Breast Exam: Deferred Gastrointestinal: No Organomegaly, Non Tender, No Pulsatile Mass, Normal Bowel Sounds, Soft Genitalia: Deferred Pelvic: Deferred Rectal: Deferred Extremities: No calf tenderness, Normal capillary refill, Normal inspection, Normal range of motion, Non-tender, No pedal edema Musculoskeletal : Apperance: Normal Neurologic: Alert, despatching and receiving clerk II-XII nml as Tested, No Motor Deficits, Normal Affect, Normal Mood, No Sensory Deficits Cerebellar Function: Normal Reflexes: Normal Skin: Dry, Normal Color, Warm Lymphatic: No Adenopathy Was a procedure done? Was a procedure done?: No Differential Dx Considerations may include: Viral syndrome, UTI, electrolyte abnormality, X-Ray, Labs, Meds, VS Vital Signs Date Time Temp Pulse Resp B/P (MAP) Pulse Ox O2 Delivery O2 Flow Rate FiO2 05/01/25 02:40 98.1 95 18 128/83 (98) 95 98.1 Lab Test 05/01/25 03:45 05/01/25 02:50 Range/Units Troponin I High Sensitivity < 3 L < 3 L </=34 ng/L White Blood Count 9.8 4.4-10.8 10^3/uL Red Blood Count 4.21 4.0-5.20 10^6/uL Hemoglobin 13.7 12.2-16.2 g/dL Hematocrit 40.7 36.0-46.0 % Mean Corpuscular Volume 96.7 80.0-100.0 fL Mean Corpuscular Hemoglobin 32.5 H 28.0-32.0 pg Mean Corpuscular Hemoglobin Concent 33.7 32.0-36.0 g/dL Red Cell Distribution Width 13.6 11.8-14.3 % Platelet Count 283 140-450 10^3/uL Mean Platelet Volume 9.4 6.9-10.8 fL Neutrophils (%) (Auto) 56.5 37.0-80.0 % Lymphocytes (%) (Auto) 34.9 10.0-50.0 % Monocytes (%) (Auto) 6.3 0.0-12.0 % Eosinophils (%) (Auto) 1.6 0.0-7.0 % Basophils (%) (Auto) 0.7 0.0-2.0 % Neutrophils # (Auto) 5.5 1.6-8.6 10 ^3/uL Lymphocytes # (Auto) 3.4 0.4-5.4 10 ^3/uL Monocytes # (Auto) 0.6 0-1.3 10 ^3/uL Eosinophils # (Auto) 0.2 0-0.8 10 ^3/uL Basophils # (Auto) 0.1 0-0.2 10 ^3/uL Nucleated Red Blood Cells 0.1 % Sodium Level 142 136-145 mmol/L Potassium Level 3.1 L 3.5-5.1 mmol/L Chloride Level 106 98-107 mmol/L Carbon Dioxide Level 27 20-31 mmol/L Anion Gap 9 5-15 Blood Urea Nitrogen 14 9-23 mg/dL Creatinine 0.70 0.550-1.02 mg/dL Glomerular Filtration Rate Calc 100 >90 mL/min BUN/Creatinine Ratio 20.0 10.0-20.0 Serum Glucose 139 H 74-106 mg/dL Calcium Level 9.1 8.7-10.4 mg/dL Salicylates Level < 3.0 -30 mg/dL Acetaminophen Level < 2.0 L 10.0-20.0 UG/ML Plasma/Serum Blood Alcohol < 3.0 <10 mg/dL Time of 1ST Reevaluation: 03:25 Reevaluation 1ST: Unchanged Patient Education/Counseling: Diagnosis, Treatment, Prognosis Family Education/Counseling: No Family Present SEPSIS Sepsis Screen Physician Orders Chest Portable (05/01/25 02:43) Drug Screen (05/01/25 02:43) Urinalysis (05/01/25 02:46) Sodium Chloride 0.9% (05/01/25 05:45) Ondansetron Hcl (Zofran) (05/01/25 05:45) Ketorolac Injection (Toradol Injection) (05/01/25 05:45) Vital Signs Date Time Temp Pulse Resp B/P (MAP) Pulse Ox O2 Delivery O2 Flow Rate FiO2 05/01/25 02:40 98.1 95 18 128/83 (98) 95 98.1 Laboratory Tests Test 05/01/25 02:50 White Blood Count 9.8 10^3/uL (4.4-10.8) Departure 1 Departure Time of Disposition: 05:40 (Patient with a intractable nausea and vomiting. We will admit patient for further workup and expert consultation) Impression: Primary Impression: Projectile vomiting with nausea Additional Impression: Generalized weakness Disposition: ADMITTED INPATIENT Admit to: Med Surg Condition: Serious Critical Care Note Critical Care Time?: No Stability Stability form required: No I personally scribed for DEONTE YO MD ([email or web address]) on 05/01/25 at 03:00. Electronically submitted by Blanca Leonard [email or web address]). DEONTE YO MD May 01, 2025 03:00
[2025-05-01 03:40] LABS: Chloride 106 mmol/L (98-107); Sodium 142 mmol/L (136-145)
[2025-05-01 03:41] LABS: Anion Gap 9 (5-15); Carbon Dioxide 27 mmol/L (20-31)
[2025-05-01 03:42] LABS: Calcium 9.1 mg/dL (8.7-10.4)
[2025-05-01 03:46] LABS: BUN/Creatinine Ratio 20.0 (10.0-20.0); Blood Urea Nitrogen 14 mg/dL (9-23); Hematocrit 40.7 % (36.0-46.0); Hemoglobin 13.7 g/dL (12.2-16.2); Mean Corpuscular Hemoglobin 32.5 pg (28.0-32.0); Mean Corpuscular Volume 96.7 fL (80.0-100.0); Nucleated Red Blood Cells % 0.1 %
[2025-05-01 03:54] LABS: Acetaminophen < 2.0 UG/ML (10.0-20.0); Salicylate < 3.0 mg/dL (-30)
[2025-05-01 03:55] LABS: Glucose 139 mg/dL (74-106); Potassium 3.1 mmol/L (3.5-5.1)
--- NOTE | 2025-05-01 04:08 | DVH ---
CHEST RADIOGRAPH Indication: ams Technique: Single frontal view of the chest was obtained Comparison: None FINDINGS: Lines and Tubes: None Lungs: No focal consolidation. Pleura: No effusion. No pneumothorax. Cardiomediastinal contours: Unremarkable Bones: No acute osseous abnormality. IMPRESSION: 1. No acute cardiopulmonary disease.
[2025-05-01] MEDS: ONDANSETRON HCL 4 MG/2 ML VIAL IV ONE (05:54)
[2025-05-01] MEDS: KETOROLAC TROMETH 30 MG/ML 1ML VIAL IV ONE (05:55)
[2025-05-01] MEDS: SODIUM CHLORIDE 0.9% 1,000 ML IV ONE (05:55)
[2025-05-01 07:48] VITALS: PULSE 82; RESP 18; O2SAT 98
[2025-05-01 09:09] LABS: Urine Protein, UAD Negative (Negative)
[2025-05-01 13:52] LABS: Cannabinoid Screen, Urine Neg (NEGATIVE)
[2025-05-01 13:54] LABS: Amphetamine Screen, Urine Neg (NEGATIVE); Barbiturate Scree,Urine Neg (NEGATIVE); Benzodiazephine Screen, Urine Neg (NEGATIVE); Cocaine Screen, Urine Neg (NEGATIVE); Opiate Scree,Urine Neg (NEGATIVE); Phencyclidine Screen, Urine Neg (NEGATIVE)
[2025-05-01] MEDS ORDERED: ARIP1INJ2 IM (13:54)
[2025-05-01] MEDS ORDERED: ARIP15TA48 PO (13:54)
--- NOTE | 2025-05-01 13:54 | DVHHP2 ---
History of Present Illness Reason for Visit: Abdominal pain History of Present Illness Kylee Pratt is a 59-year-old female with past medical history of arthritis, bilateral tubal ligation, cholecystectomy, and who presents to the ED with abdominal pain with nausea, vomiting, diarrhea x2 weeks. Upon examination patient states that her pain is 5/10 aching and intermittent in nature. Patient denies any recent trauma or injury, recent sick contacts, recent travels, recent ingestion of spoiled food, fever, chills, lightheadedness, weakness, dizziness, chest pain, shortness of breath, or urinary symptoms. Patient reports that she is compliant with her medications. She states that she lives with a roommate also smokes couple of cigarettes per day, denies illicit drug use, and denies alcohol use. Past Medical History Arthritis Past Surgical History: Cholecystectomy, , Tubal Ligation Family History: Other (Mom with heart disease) Smoke: <1 pack per day ALCOHOL: none Drugs: None Lives: Roommate Domestic Violence: Neg Review of Systems Gastrointestinal: Abdominal Pain Allergies: Coded Allergies: NO KNOWN ALLERGIES (Unverified , 03/10/25) Exam Vital Signs Vital Signs Date Time Temp Pulse Resp B/P (MAP) Pulse Ox O2 Delivery O2 Flow Rate FiO2 05/01/25 12:00 86 17 152/92 (112) 99 05/01/25 07:48 97.7 97.7 05/01/25 07:48 Room Air* 0 21 General Appearance: Alert, Oriented X3, Cooperative, No acute distress HEENT: Atraumatic, PERRLA, EOMI, Mucous membr. moist/pink Respiratory: Clear to auscultation, Normal air movement Cardiovascular: Regular rate, Normal S1, Normal S2, No murmurs Abdominal: Normal bowel sounds, Soft Extremities: No clubbing, No cyanosis, No edema, Normal pulses, No tenderness/swelling Skin: No significant lesion Neuro: Normal speech, Strength at 5/5 X4 ext, Normal tone, Sensation intact Psych/Mental Status: Mental status NL, Mood NL Labs/Xrays Labs Test 05/01/25 07:41 05/01/25 03:45 05/01/25 02:50 Range/Units Urine Color Colorless Yellow Urine Clarity Clear Clear Urine pH 6.0 5.0-9.0 Urine Specific [place] 1.008 1.001-1.035 Urine Protein Negative Negative Urine Ketones Trace Negative Urine Blood Negative Negative /uL Urine Nitrite Negative Negative Urine Bilirubin Negative Negative Urine Urobilinogen Normal Negative mg/dL Urine Leukocyte Esterase Negative Negative /uL Urine RBC <1 0 - 4 /hpf Urine Microscopic WBC < 1 0-5 /HPF Urine Squamous Epithelial Cells None seen <5 /hpf Urine Bacteria None seen None Seen /hpf Urine Glucose Normal Normal mg/dL Troponin I High Sensitivity < 3 L </=34 ng/L White Blood Count 9.8 4.4-10.8 10^3/uL Red Blood Count 4.21 4.0-5.20 10^6/uL Hemoglobin 13.7 12.2-16.2 g/dL Hematocrit 40.7 36.0-46.0 % Mean Corpuscular Volume 96.7 80.0-100.0 fL Mean Corpuscular Hemoglobin 32.5 H 28.0-32.0 pg Mean Corpuscular Hemoglobin Concent 33.7 32.0-36.0 g/dL Red Cell Distribution Width 13.6 11.8-14.3 % Platelet Count 283 140-450 10^3/uL Mean Platelet Volume 9.4 6.9-10.8 fL Neutrophils (%) (Auto) 56.5 37.0-80.0 % Lymphocytes (%) (Auto) 34.9 10.0-50.0 % Monocytes (%) (Auto) 6.3 0.0-12.0 % Eosinophils (%) (Auto) 1.6 0.0-7.0 % Basophils (%) (Auto) 0.7 0.0-2.0 % Neutrophils # (Auto) 5.5 1.6-8.6 10 ^3/uL Lymphocytes # (Auto) 3.4 0.4-5.4 10 ^3/uL Monocytes # (Auto) 0.6 0-1.3 10 ^3/uL Eosinophils # (Auto) 0.2 0-0.8 10 ^3/uL Basophils # (Auto) 0.1 0-0.2 10 ^3/uL Nucleated Red Blood Cells 0.1 % Sodium Level 142 136-145 mmol/L Potassium Level 3.1 L 3.5-5.1 mmol/L Chloride Level 106 98-107 mmol/L Carbon Dioxide Level 27 20-31 mmol/L Anion Gap 9 5-15 Blood Urea Nitrogen 14 9-23 mg/dL Creatinine 0.70 0.550-1.02 mg/dL Glomerular Filtration Rate Calc 100 >90 mL/min BUN/Creatinine Ratio 20.0 10.0-20.0 Serum Glucose 139 H 74-106 mg/dL Calcium Level 9.1 8.7-10.4 mg/dL Salicylates Level < 3.0 -30 mg/dL Acetaminophen Level < 2.0 L 10.0-20.0 UG/ML Plasma/Serum Blood Alcohol < 3.0 <10 mg/dL CHEST RADIOGRAPH Indication: ams Technique: Single frontal view of the chest was obtained Comparison: None FINDINGS: Lines and Tubes: None Lungs: No focal consolidation. Pleura: No effusion. No pneumothorax. Cardiomediastinal contours: Unremarkable Bones: No acute osseous abnormality. IMPRESSION: 1. No acute cardiopulmonary disease. Assessment/Plan Assessment/Plan Assessment Intractable abdominal pain with nausea vomiting and diarrhea Hypokalemia Tobacco use History of arthritis ? Psychiatric disorder Plan [facility] Antiemetics Pain management Tele psych done in ER UA Salicylates Tylenol panel Blood alcohol UA UDS Chest x-ray Troponin negative x2 CT abdomen and pelvis ordered Diet Home medications reconciled DVT prophylaxis-not indicated patient ambulating PUD prophylaxis-not indicated no history of GERD or GI bleed Discussed plan of care with patient and nurse Counseled patient on tobacco cessation 48440 Behavior change smoking about use of other options also gave option of nicotine patch 17421 Preventive counseling healthy eating habits, physical activity, and regular checkups Plan discussed with: Patient My Orders Orders - 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 Procedure Category Date Status Time Admit ADMIT 05/01/25 Verified 13:52 Allergies LILIA 05/01/25 Verified 13:52 Code Status CODE 05/01/25 Verified 13:52 Hydrocodone-Acet PHA 05/01/25 Verified 5/325mg Tab ([place] 14:00 Ondansetron Hcl PHA 05/01/25 Verified (Zofran) 14:00 Complete Blood Count LAB 05/02/25 Verified 04:00 Comprehensive LAB 05/02/25 Verified Metabolic Panel 04:00 Cardiac DIET 05/01/25 Verified Diet-2gna,Lofat,Lochol Dinner Acetaminophen Tablet PHA 05/01/25 Verified (Tylenol Tablet) 14:00 Morphine Sulfate PHA 05/01/25 Verified Injection 14:00 Sequential LILIA 05/01/25 Verified Compression Device Nitroglycerin [facility] 05/01/25 Verified Sublingual ([place] 14:00 Morphine Sulfate PHA 05/01/25 Verified Injection 14:00 Stat Ekg For Chest [facility] 05/01/25 Verified Pain 13:52 Notify Md Of Changes [facility] 05/01/25 Verified From Base 13:52 Farm Operations Technical Director For [facility] 05/01/25 Verified 24 Hours 13:52 Emergency Dysrhythmia [facility] 05/01/25 Verified Protocol 13:52 Rhythm Strips Once [facility] 05/01/25 Verified Every Shift 13:52 Oxygen By Nasal RT 05/01/25 Verified Cannula 13:52 Potassium Er Tablet [facility] 05/01/25 Verified (Klor-Con Tablet) 14:00 Date of Service: May 01, 2025 Billing Provider: INOCENTE EDWARDS Common Visit Codes: [id number] INP/OBS CARE (HIGH) Secondary Visit Codes: [id number] COUNSELING IND, [id number] CHNG SMOKING 3-10m INOCENTE EDWARDS May 01, 2025 13:54
[2025-05-01] MEDS ORDERED: HYDROcodone-ACET 5/325MG TAB PO PRN (14:00)
[2025-05-01] MEDS ORDERED: NITROGLYCERIN 0.4 MG SL TAB SL PRN (14:00)
[2025-05-01] MEDS ORDERED: MORPHINE SULFATE INJ 2 MG/ml SYRG IV PRN (14:00)
[2025-05-01] MEDS: POTASSIUM CHL 20 Meq TABLET PO ONE (14:30)
--- NOTE | 2025-05-01 16:00 | DVH ---
Exam: CT CT AB PEL WO CON-NO ORAL OR IV History: abd pain Comparison Study: None TECHNIQUE: Multidetector CT of the abdomen and pelvis was performed from lung bases to pubic symphysi s. Imaging was performed without IV contrast. Axial, coronal, and sagittal multiplanar reformats were obtained from the axial data set by the technologist. RADIATION DOSE: DLP 541.68 mGy.cm; CTDI vol 10.85 mGy. Findings: Lungs: The lung bases are clear. Heart: No cardiomegaly or pericardial effusion. Liver: Unremarkable. Gallbladder: Cholecystectomy. Spleen: Unremarkable Pancreas: Unremarkable Adrenals: Unremarkable Kidneys: Unremarkable GI tract: Unremarkable : Unremarkable. Vasculature: Mild aortoiliac atherosclerosis. Lymphadenopathy: Absent Peritoneum: No ascites Musculoskeletal: Mild multilevel degenerative changes of the thoracolumbar spine. Soft tissues: Small fat containing periumbilical hernia. Unremarkable Impression: 1. No acute abdominopelvic abnormalities.
[2025-05-01 16:10] VITALS: PULSE 87; RESP 17; O2SAT 98
[2025-05-01 17:00] VITALS: BP 132/85; PULSE 87; RESP 17; TEMP 98.7; O2SAT 98
[2025-05-01 20:00] VITALS: PULSE 97; RESP 18; O2SAT 99
[2025-05-01] MEDS: ONDANSETRON HCL 4 MG/2 ML VIAL IV PRN (20:52)
[2025-05-01] MEDS: MORPHINE SULFATE INJ 2 MG/ml SYRG IV PRN (20:52)
[2025-05-01 21:00] VITALS: BP 142/97; PULSE 97; RESP 18; TEMP 98.1; O2SAT 99
[2025-05-02] VITALS (8 sets, daily range): BP systolic 102–126; BP diastolic 56–85; PULSE 78–97; RESP 16–20; TEMP 97.4–98.8; O2SAT 95–97
[2025-05-02 06:22] LABS: Hematocrit 38.6 % (36.0-46.0); Hemoglobin 13.2 g/dL (12.2-16.2); Mean Corpuscular Hemoglobin 33.0 pg (28.0-32.0); Mean Corpuscular Volume 96.7 fL (80.0-100.0); Nucleated Red Blood Cells % 0.2 %
[2025-05-02 06:32] LABS: Alanine Aminotransferase 28 U/L (7-40); Albumin 4.1 g/dL (3.2-4.8); Alkaline Phosphatase 52 U/L (46-116); Anion Gap 9 (5-15); BUN/Creatinine Ratio 12.1 (10.0-20.0); Calcium 9.4 mg/dL (8.7-10.4); Carbon Dioxide 24 mmol/L (20-31); Glucose 104 mg/dL (74-106); Potassium 4.1 mmol/L (3.5-5.1); Sodium 141 mmol/L (136-145); Total Protein 6.4 g/dL (5.7-8.2)
[2025-05-02 06:33] LABS: Bilirubin, Total 0.5 mg/dL (0.2-1.0)
[2025-05-02 06:34] LABS: Blood Urea Nitrogen 8 mg/dL (9-23); Chloride 108 mmol/L (98-107)
[2025-05-02] MEDS: ARIPIPRAZOLE 15 MG PO SCH (10:00)
[2025-05-03 01:00] VITALS: BP 108/72; PULSE 80; RESP 18; TEMP 98.8; O2SAT 96
[2025-05-03 05:00] VITALS: BP 108/71; PULSE 84; RESP 18; TEMP 97.8; O2SAT 97
[2025-05-03] MEDS: ACETAMINOPHEN 325 MG TAB PO PRN (08:48)
[2025-05-03 09:00] VITALS: BP 113/77; PULSE 82; RESP 17; TEMP 97.9; O2SAT 97
[2025-05-03 13:00] VITALS: BP 107/74; PULSE 83; RESP 16; TEMP 98.1; O2SAT 93
--- NOTE | 2025-05-03 13:49 | DVHPN2 ---
Subjective Overnight events noted. Patient's denies any nausea and vomiting diarrhea currently tolerating diet. Reviewed: Care Plan Changes from previous H/P or p: No Changes Gastrointestinal: Abdominal Pain Objective Vitals Vital Signs Date Time Temp Pulse Resp B/P (MAP) Pulse Ox O2 Delivery O2 Flow Rate FiO2 05/03/25 09:00 97.9 82 17 113/77 (89) 97 97.9 05/03/25 08:06 Room Air* 0 21 Intake/Output Intake and Output 05/03/25 07:00 Intake Total 1350 ml Balance 1350 ml Intake Oral 1350 ml # Voids 4 # Bowel Movements 1 Exam HEENT pupils are reactive Neck is supple CV is S1-S2 regular rate and rhythm Respiratory diminished breath sounds bases GI positive bowel sound, soft nondistended nontender no guarding no rigidity Extremity no edema 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 Medications Current Medications Medications Dose Ordered Sig/Chucky Route Start Time Stop Time Status Last Admin Dose Admin Acetaminophen/ Hydrocodone Bitart 1 tab Q4HP PRN PO 05/01/25 14:00 Ondansetron HCl 4 mg Q4HP PRN IV 05/01/25 14:00 05/01/25 20:52 4 MG Acetaminophen 650 mg Q6HP PRN PO 05/01/25 14:00 05/03/25 08:48 650 MG Morphine Sulfate 2 mg Q4HPRN PRN IV 05/01/25 14:00 05/01/25 20:52 2 MG Nitroglycerin 0.4 mg Q5MINP PRN SL 05/01/25 14:00 Morphine Sulfate 2 mg Q30M PRN IV 05/01/25 14:00 Patient Own Medication 1 tab DAILY PO 05/02/25 10:00 Laboratory Results Laboratory Tests 05/02/25 05:52 Urinalysis Test 05/01/25 07:41 Urine Color Colorless (Yellow) Urine Clarity Clear (Clear) Urine pH 6.0 (5.0-9.0) Urine Specific [place] 1.008 (1.001-1.035) Urine Protein Negative (Negative) Urine Ketones Trace (Negative) Urine Blood Negative /uL (Negative) Urine Nitrite Negative (Negative) Urine Bilirubin Negative (Negative) Urine Urobilinogen Normal mg/dL (Negative) Urine Leukocyte Esterase Negative /uL (Negative) Urine RBC <1 /hpf (0 - 4) Urine Microscopic WBC < 1 /HPF (0-5) Urine Squamous Epithelial Cells None seen /hpf (<5) Urine Bacteria None seen /hpf (None Seen) Urine Glucose Normal mg/dL (Normal) Assessment/Plan Assessment/Plan 59-year-old female who initially presented to the hospital with a nausea and vomiting diarrhea found to have 1. Intractable abdominal pain, resolved 2. Nausea and vomiting resolved 3. Chronic tobacco use disorder 4. Psychiatric disorder currently not in decompensation -diet as tolerated, CT abdomen and pelvis shows no evidence of any acute pathology -discharge plan Plan discussed with: Patient My Orders Orders - PIERRE RED MD Procedure Category Date Status Time * Infectious [place]- Dr. SHEPARD 05/02/25 Transmitted [facility] 14:35 Date of Service: May 02, 2025 Billing Provider: PIERRE RED MD Common Visit Codes: [id number] INP/OBS CARE(MOD) PIERRE RED MD May 03, 2025 13:49
[2025-05-03] MEDS ORDERED: ACYC5CRE4 TOP (13:52)
--- NOTE | 2025-05-03 13:54 | DVHDS2 ---
Discharge Summary Date of Admission May 01, 2025 at 13:52 Date of Discharge: May 03, 2025 Labs/Diagnostic Data: Laboratory Results Test 05/02/25 05:52 05/01/25 07:41 05/01/25 03:45 05/01/25 02:50 White Blood Count 7.9 10^3/uL (4.4-10.8) Red Blood Count 3.99 10^6/uL (4.0-5.20) Hemoglobin 13.2 g/dL (12.2-16.2) Hematocrit 38.6 % (36.0-46.0) Mean Corpuscular Volume 96.7 fL (80.0-100.0) Mean Corpuscular Hemoglobin 33.0 pg (28.0-32.0) Mean Corpuscular Hemoglobin Concent 34.1 g/dL (32.0-36.0) Red Cell Distribution Width 13.7 % (11.8-14.3) Platelet Count 261 10^3/uL (140-450) Mean Platelet Volume 9.1 fL (6.9-10.8) Neutrophils (%) (Auto) 52.8 % (37.0-80.0) Lymphocytes (%) (Auto) 36.7 % (10.0-50.0) Monocytes (%) (Auto) 7.4 % (0.0-12.0) Eosinophils (%) (Auto) 2.6 % (0.0-7.0) Basophils (%) (Auto) 0.5 % (0.0-2.0) Neutrophils # (Auto) 4.2 10 ^3/uL (1.6-8.6) Lymphocytes # (Auto) 2.9 10 ^3/uL (0.4-5.4) Monocytes # (Auto) 0.6 10 ^3/uL (0-1.3) Eosinophils # (Auto) 0.2 10 ^3/uL (0-0.8) Basophils # (Auto) 0 10 ^3/uL (0-0.2) Nucleated Red Blood Cells 0.2 % Sodium Level 141 mmol/L (136-145) Potassium Level 4.1 mmol/L (3.5-5.1) Chloride Level 108 mmol/L (98-107) Carbon Dioxide Level 24 mmol/L (20-31) Anion Gap 9 (5-15) Blood Urea Nitrogen 8 mg/dL (9-23) Creatinine 0.66 mg/dL (0.550-1.02) Glomerular Filtration Rate Calc 102 mL/min (>90) BUN/Creatinine Ratio 12.1 (10.0-20.0) Serum Glucose 104 mg/dL (74-106) Calcium Level 9.4 mg/dL (8.7-10.4) Total Bilirubin 0.5 mg/dL (0.2-1.0) Aspartate Amino Transferase (AST) 23 U/L (13-40) Alanine Aminotransferase (ALT) 28 U/L (7-40) Alkaline Phosphatase 52 U/L (46-116) Total Protein 6.4 g/dL (5.7-8.2) Albumin 4.1 g/dL (3.2-4.8) Urine Color Colorless (Yellow) Urine Clarity Clear (Clear) Urine pH 6.0 (5.0-9.0) Urine Specific [place] 1.008 (1.001-1.035) Urine Protein Negative (Negative) Urine Ketones Trace (Negative) Urine Blood Negative /uL (Negative) Urine Nitrite Negative (Negative) Urine Bilirubin Negative (Negative) Urine Urobilinogen Normal mg/dL (Negative) Urine Leukocyte Esterase Negative /uL (Negative) Urine RBC <1 /hpf (0 - 4) Urine Microscopic WBC < 1 /HPF (0-5) Urine Squamous Epithelial Cells None seen /hpf (<5) Urine Bacteria None seen /hpf (None Seen) Urine Glucose Normal mg/dL (Normal) Urine Opiates Screen Neg (NEGATIVE) Urine Fentanyl Screen Neg (NEGATIVE) Urine Barbiturates Screen Neg (NEGATIVE) Urine Phencyclidine Screen Neg (NEGATIVE) Urine Amphetamines Screen Neg (NEGATIVE) Urine Benzodiazepines Screen Neg (NEGATIVE) Urine Cocaine Screen Neg (NEGATIVE) Urine Cannabinoids Screen Neg (NEGATIVE) Troponin I High Sensitivity < 3 ng/L (</=34) Salicylates Level < 3.0 mg/dL (-30) Acetaminophen Level < 2.0 UG/ML (10.0-20.0) Plasma/Serum Blood Alcohol < 3.0 mg/dL (<10) Other Laboratory Tests 05/02/25 05:52 Brief Hx & Hospital Course: 59-year-old female who initially presented to the hospital with a nausea and vomiting diarrhea found to have intractable abdominal pain. Patient does have known history of chronic tobacco use disorder. Patient is also has some psychiatric disorder currently not in decompensation. Patient has complained of recent diagnosis of herpes please some lesions and bumps in the scalp. Patient is requesting [place] around med which will be prescribed. Patient is currently tolerating diet and stable to be discharged. Condition at Discharge: Stable Final Diagnosis/Problems List 59-year-old female who initially presented to the hospital with a nausea and vomiting diarrhea found to have 1. Intractable abdominal pain, resolved 2. Nausea and vomiting resolved 3. Chronic tobacco use disorder 4. Psychiatric disorder currently not in decompensation Discharge Disposition: Home SNF Discharge Will this Physician continue t: No Discharge Instruct/Medications Diet: Cardiac 2g Na,low cholest Activity: No Restrictions, As Tolerated Follow Up/Referral: Follow up with the PCP in one week Follow up with the Infectious Disease specialist as an outpatient in one week for recent diagnosis of her PCP Medications: Zovirax ointment as prescribed Scheduled Acyclovir Topical (Zovirax), 1 APPLIC TOP 5XD Amoxicillin & Pot Clavulanate (Augmentin Tablet), 875 MG PO BID Aripiprazole (Aripiprazole), 1 TAB PO DAILY, (Reported) Meclizine HCl (Meclizine 25), 25 MG PO BS Naproxen (Naproxen), 1 TAB PO BIDPC Scheduled PRN Ibuprofen Micronized (Motrin Tablet), 600 MG PO TID PRN Miscellaneous Medications Aripiprazole Monohydrate (Abilify Maintena), 1 EA IM, (Reported) Discharge Statement: "Patient was advised to return to the ER or call 911 if any headaches, dizziness, shortness of breath, chest pain, abdominal pain, bleeding, fevers, or worsening of medical condition. Patient was counseled about treatment plan, medications, possible side effects, patientverbalized understanding. All questions were answered to the best of my ability. This discharge took greater then 30 minutes in planning, reviewing documentation, counseling the patient, and discussing with other team members." ASSESSMENT ASSESSMENT Assessment 59-year-old female who initially presented to the hospital with a nausea and vomiting diarrhea found to have 1. Intractable abdominal pain, resolved 2. Nausea and vomiting resolved 3. Chronic tobacco use disorder 4. Psychiatric disorder currently not in decompensation Date of Service: May 03, 2025 Billing Provider: PIERRE RED MD Common Visit Codes: [id number]/OBS DISCH DAY >30min PIERRE RED MD May 03, 2025 13:54
[2025-05-03 17:00] VITALS: BP 108/63; PULSE 79; RESP 17; TEMP 97.8; O2SAT 92
== END 2025-05-03 17:50 | disposition home or self-care (01) | DRG 392 ==
LOC: ER 02:40 → OVERFLOW 13:52 → EAST 13:53
DX: A08.4 Viral intestinal infection, unspecified (principal); E87.6 Hypokalemia; F17.210 Nicotine dependence, cigarettes, uncomplicated; F99 Mental disorder, not otherwise specified; Z90.49 Acquired absence of other specified parts of digestive tract
CPT/HCPCS: 36415; 71045; 74176; 80048; 80053; 80307; 80320; 80329; 81001; 84484; 85025; G0378; J1885; J2405